=== PATIENT | female | born 1990 | race Caucasian/White ===

== ENCOUNTER 2018-11-22 08:26 | Emergency (ER) | payer OTHER ==
[~2018-11-22] VITALS: Ht 182.9 cm; Wt 88.5 kg
[2018-11-22 08:32] VITALS: BP 120/67
[2018-11-22 09:30] LABS: Urine Bacteria NONE SEEN /hpf (None Seen); Urine Blood 2+ /uL (Negative); Urine Hyaline Cast FEW /lpf (0 - 2); Urine Mucus FEW (None Seen); Urine Specific Gravity 1.022 (1.001-1.035); Urine WBC 5 /hpf (0 - 5)
[2018-11-22] MEDS ORDERED: PROMETHAZINE HCL 25 MG/ML 1ML IV ONE (09:45)
[2018-11-22] MEDS ORDERED: SODIUM CHLORIDE 0.9% 1,000 ML IV ONE (09:45)
== END 2018-11-22 10:42 | disposition left against medical advice (07) ==
LOC: ER 08:26
DX: N20.0 Calculus of kidney (principal)
CPT/HCPCS: 74176 ×2; 81001 ×2; 99284; J7030

== ENCOUNTER 2019-07-12 15:12 | Emergency (ER) | payer OTHER ==
[~2019-07-12] VITALS: Ht 182.9 cm; Wt 93.0 kg
[2019-07-12] MEDS ORDERED: SODIUM CHLORIDE 0.9% 1,000 ML IVB ONE (15:14)
[2019-07-12] MEDS ORDERED: PROCHLORPERAZINE EDISYLATE 5 MG/ML 2ML VIAL IV ONE (15:15)
[2019-07-12] MEDS ORDERED: HYDROmorphone HCL 2 MG/ML VL IV ONE (15:15)
[2019-07-12] MEDS ORDERED: FAMOTIDINE (10MG/ML) 2ML VL IV ONE (15:15)
[2019-07-12 15:36] LABS: Basophils # (auto) 0 uL; Eosinophils # (auto) 0.1 uL; Monocytes # (auto) 0.5 uL; Nucleated Red Blood Cells % 0.1 %; White Blood Cell 6.4 10^3/uL (4.4-10.8)
[2019-07-12 15:38] LABS: Basophils % (auto) 0.4 % (0.0-2.0); Eosinophils % (auto) 1.8 % (0.0-7.0); Hematocrit 36.8 % (36.0-46.0); Hemoglobin 11.6 g/dL (12.2-16.2); Lymphocytes # (auto) 2.5 uL; Lymphocytes % (auto) 38.4 % (10.0-50.0); Mean Corpuscular Hemoglobin 25.2 pg (28.0-32.0); Mean Corpuscular Hgb Conc. 31.6 g/dL (32.0-36.0); Mean Corpuscular Volume 79.6 fL (80.0-100.0); Monocytes % (auto) 8.3 % (0.0-12.0); Neutrophils # (auto) 3.3 uL; Neutrophils % (auto) 51.1 % (37.0-80.0); Platelet Count (auto) 214 10^3/uL (140-450); Red Blood Cells 4.62 10^6/uL (4.0-5.20); Red Cell Distribution Width 18.4 % (11.8-14.3)
[2019-07-12 15:53] LABS: Albumin 3.6 g/dL (3.4-5.0); BUN/Creatinine Ratio 22.1; Magnesium 2.2 mg/dL (1.6-2.6); Potassium 3.7 mmol/L (3.5-5.1)
[2019-07-12 15:55] LABS: Bilirubin, Total 0.3 mg/dL (0.2-1.0); Total Protein 6.5 g/dL (6.4-8.2)
[2019-07-12] MEDS ORDERED: MORPHINE SULFATE 4 MG/ML SYR/VIAL IV ONE (16:30)
[2019-07-12 19:15] VITALS: BP 104/68
[2019-07-12] MEDS ORDERED: SOD CHL 0.45% WITH 20MEQ KCL 1,000 ML IV SCH (19:30)
[2019-07-12] MEDS ORDERED: OXYCODONE W/ ACETAMINOPHEN 5/325MG TABLET PO PRN (19:30)
[2019-07-12] MEDS ORDERED: ONDANSETRON HCL 4 MG/2 ML VIAL IV PRN (19:30)
[2019-07-12] MEDS ORDERED: HYDROmorphone HCL 2 MG/ML VL IV PRN (19:30)
[2019-07-12] MEDS ORDERED: LEVOFLOXACIN 500MG 100 ML IV SCH (19:34)
[2019-07-12 19:52] LABS: % Iron Saturation 4.9 % (15-50)
[2019-07-12 20:13] LABS: Urine Bacteria NONE SEEN /hpf (None Seen); Urine Blood Negative /uL (Negative); Urine Mucus FEW (None Seen); Urine Specific Gravity 1.007 (1.001-1.035); Urine WBC 2 /hpf (0 - 5)
[2019-07-12] MEDS ORDERED: metroNIDAZOLE 500MG/100ML 100 ML IV SCH (22:00)
== END 2019-07-12 20:05 | disposition home or self-care (01) ==
LOC: ER 15:15
DX: K80.20 Calculus of gallbladder without cholecystitis without obstruction (principal); R11.2 Nausea with vomiting, unspecified
CPT/HCPCS: 36415; 76705; 80053; 81001; 81025; 82150; 83540; 83550; 83690; 83735; 85025; 85045; 94761; 96374; 96375; 99284; J0780; J2270; J3490; J7030